=== PATIENT | male | born 1990 | race Two or more races ===

== ENCOUNTER 2016-06-27 16:03 | Emergency (ER) | payer SELFPAY ==
[2016-06-27 16:33] VITALS: BP 159/105
--- NOTE | 2016-06-27 17:27 | UC ---
Skin Complaint HPI - HPI Summary HPI Summary: The patient comes in today for: 1. Skin soreness/mass: Onset: 2-3 years ago. In the last couple of weeks, there is more soreness. Palliative/provocative: Pressing on it makes it worse in terms of pain. No pressure makes it better. Quality: Ache Region: Right torso. Severity: 3/10 Time: Comes and goes. Associated symptoms: Previous evaluation: He went to an emergency room in [place] about 2-3 years ago and was told that the mass was a cyst. Fevers: None. Discharge: None. It has grown to twice its size. PCP: None. He has gained about 50 pounds over the last few years. No history of lymphomas or other cancers. * - History of Current Complaint Chief Complaint: UCSkin Time Seen by Provider: 06/27/16 17:06 Stated Complaint: SKIN COMPLAINT Hx Obtained From: Patient, Family/Bottle Assembler - Allergy/Home Medications Allergies/Adverse Reactions: Allergies Allergy/AdvReac Type Severity Reaction Status Date / Time Shellfish Allergy Allergy Hives/Diff. Verified 01/25/16 13:40 Breathing/I tching Review of Systems Constitutional: Negative Skin: Negative Eyes: Negative ENT: Negative Respiratory: Negative Cardiovascular: Negative Gastrointestinal: Negative Genitourinary: Negative All Other Systems Reviewed And Are Negative: Yes PMH/Surg Hx/FS Hx/Imm Hx Previously Healthy: No Endocrine History Of: Denies: Diabetes, Thyroid Disease, Hyperthyroidism, Hypothyroidism, Dyslipidemia Cardiovascular History Of: Reports: Hypertension - He has not had high blood pressure diagnosed before. Denies: Cardiac Disorders, Pacemaker/ICD, Myocardial Infarction, Congestive Heart Failure, Atrial Fibrillation, Deep Vein Thrombosis, Bleeding Disorders Respiratory History Of: Reports: Asthma - He has occasional use of albuteral inhaler. Denies: COPD, Bronchitis, Pneumonia, Pulmonary Embolism GI/ History Of: Denies: Gastroesophageal Reflux, Ulcer, Gastrointestinal Bleed, Gall Bladder Disease, Kidney Stones, Diverticulitis, Renal Disease, Urosepsis Neurological History Of: Denies: TIA, CVA, Dementia, Seizures, Migraine Psychological History Of: Denies: Anxiety, Depression, Bipolar Disorder, Schizophrenia, Post Traumatic Stress Disorder Cancer History Of: Denies: Lung Cancer, Colorectal Cancer, Breast Cancer, Prostate Cancer, Cervical Cancer Other History Of: Negative For: HIV, Hepatitis B, Hepatitis C, Anticoagulant Therapy - Surgical History Surgical History: None - Family History Known Family History: Positive: Cardiac Disease, Hypertension - Social History Occupation: Employed Full-time Alcohol Use: Occasionally Substance Use Type: None Smoking Status (MU): Never Smoked Tobacco Physical Exam Triage Information Reviewed: Yes Completion Of Physical Exam Limited Due To: Altered Mental Status Appearance: Well-Appearing, No Pain Distress, Well-Nourished Vital Signs: Initial Vital Signs Temp 99.7 F 06/27/16 16:26 Pulse 93 06/27/16 16:26 Resp 16 06/27/16 16:26 BP 159/105 06/27/16 16:26 Pulse Ox 99 06/27/16 16:26 Repeat blood pressure: Large cuff, sitting position, left arm: 144/84. Vital Signs Reviewed: Yes Eyes: Positive: Conjunctiva Clear. Negative: Discharge ENT: Positive: Hearing grossly normal. Negative: Pharyngeal erythema, Nasal congestion, Nasal drainage, TM bulging, TM dull, TM red, Tonsillar swelling, Tonsillar exudate Dental: Negative: Gross Decay/Caries @, Dental Fracture @ Neck: Positive: Supple, Nontender, No Lymphadenopathy. Negative: Nuchal Rigidity Respiratory: Positive: Lungs clear, No respiratory distress, No accessory muscle use. Negative: Crackles, Wheezing Cardiovascular: Positive: RRR, No Murmur Abdomen Description: Positive: Nontender, No Organomegaly, Soft. Negative: Distended, Guarding Musculoskeletal: Positive: Strength Intact, ROM Intact Neurological: Positive: Alert, Muscle Tone Normal Psychological: Positive: Normal Response To Family, Age Appropriate Behavior, Consolable Skin: Positive: Other - 1-2 cm well-rounded, slightly mobile subcutaneous mass of the right side (chest). Minimally tender.. Negative: rashes, breakdown Course/Dx - Course Course Of Treatment: Patient was told that I suspect that he had a lipoma which has gotten bigger due to his increase in weight. However, with any subcutanous mass getting bigger, I recommended that he see a general surgeon for excision to make sure that it is not a lymphoma. - Diagnoses Provider Diagnoses: Enlarging skin mass (lipoma vs lymphoma), right torso. Discharge - Discharge Plan Condition: Stable Disposition: HOME Patient Education Materials: Lipoma (GEN) Referrals: [facility] [place] [facility]ERR[facility] [Outside] No Primary Care Phys,NOPCP [Primary Care Provider] - As Soon As Possible ( Please see your primary care provider as soon as you can to establish care. Since you don't have one at this time, please contact the physician referral office to help you get one.) Stanford Morataya MD [Medical Doctor] - As Soon As Possible (Contact Dr. Morataya's office as soon as you can for a follow-up evaluation and treatment.) Additional Instructions: Skin mass (lipoma vs lyphmoma)
== END 2016-06-27 17:50 | disposition home or self-care (01) ==
LOC: UCEAST 16:03
DX: R22.2 Localized swelling, mass and lump, trunk (principal)
CPT/HCPCS: 99211; G0463

== ENCOUNTER 2017-01-02 16:22 | Observation (INO) | payer MEDICAID ==
[2017-01-02] MEDS ORDERED: NS 0.9% 1000 ML* 1,000 ML IV ONE ×2 (17:34→18:48)
[2017-01-02 18:25] LABS: Hematocrit 48 % (42-52); Hemoglobin 16.7 g/dl (14.0-18.0); Mean Corpuscular HGB Conc 35 g/dl (31-36); Mean Corpuscular Hemoglobin 32 pg (27-31); Mean Corpuscular Volume 91 fL (80-94); Mean Platelet Volume 10 um3 (7.4-10.4); Red Blood Count 5.29 10^6/ul (4.0-5.4); Red Cell Distribution Width 13 % (10.5-15); White Blood Count 8.8 10^3/ul (3.5-10.8)
[2017-01-02 18:27] LABS: Urine Bilirubin Negative (Negative); Urine Glucose 3+(>=500 mg/dL) (Negative); Urine Nitrite Negative (Negative)
[2017-01-02 18:40] LABS: ALT 103 U/L (7-52); Albumin 4.9 g/dL (3.2-5.2); Alkaline Phosphatase 93 U/L (34-104); BUN/Creatinine Ratio 8.1 (8-20); Blood Urea Nitrogen 11 mg/dL (6-24); Calcium 9.6 mg/dL (8.6-10.3); Chloride 94 mmol/L (101-111); EGFR African American 80.8 (>60); EGFR Non-African American 62.9 (>60); Globulin 3.4 g/dL (2-4); Glucose 402 mg/dL (70-100); Sodium 126 mmol/L (133-145); Total Protein 8.3 g/dL (6.4-8.9)
[2017-01-02 18:43] LABS: Anion Gap 19 mmol/L (2-11); CO2 Carbon Dioxide 13 mmol/L (22-32)
[2017-01-02] MEDS ORDERED: Insulin REGULAR(*) 1 UNITS UNIT IV PUSH ONE (18:47)
[2017-01-02 19:04] LABS: TSH (Thyroid Stimulating Horm) 2.46 mcIU/mL (0.34-5.60)
[2017-01-02] MEDS ORDERED: NS 0.9% 1000 ML* 2,000 ML IV ONE (19:22)
--- NOTE | 2017-01-02 19:32 | ED ---
Monica Wood Salem, scribed for Ten Arroyo MD on 01/02/17 at 1914 . HPI Diabetic - HPI Summary HPI Summary: Patient is a 26 y/o M who presents to the ED with frequency in urination for the past 3-4 days. He states that he was had to urinate 15-20 a day since onset of symptoms. He reports polydipsia, mild nausea, and concern of dehydration. His significant other also reports concern that he may be developing DM secondary to her online research. Denies PMHx of DM. - History Of Current Complaint Chief Complaint: EDGeneral Time Seen by Provider: 01/02/17 17:31 Hx Obtained From: Patient, Family/Wig Sales Consultant Onset/Duration: Gradual Onset, Lasting Days, Still Present Timing: Intermittent Episode Lasting Severity Initially: Moderate Severity Currently: Moderate Character: Alert Aggravating: Nothing Alleviating: Nothing Associated Signs & Symptoms: Nausea, Polydipsia - Allergies/Home Medications Allergies/Adverse Reactions: Allergies Allergy/AdvReac Type Severity Reaction Status Date / Time Shellfish Allergy Allergy Hives/Diff. Verified 01/25/16 13:40 Breathing/I tching PMH/Surg Hx/FS Hx/Imm Hx Endocrine/Hematology History: Denies: Hx Anticoagulant Therapy, Hx Diabetes, Hx Thyroid Disease Cardiovascular History: Reports: Hx Hypertension - He has not had high blood pressure diagnosed before. Denies: Hx Congestive Heart Failure, Hx Deep Vein Thrombosis, Hx Myocardial Infarction, Hx Pacemaker/ICD Respiratory History: Reports: Hx Asthma - He has occasional use of albuteral inhaler. Denies: Hx Chronic Obstructive Pulmonary Disease (COPD), Hx Lung Cancer, Hx Pneumonia, Hx Pulmonary Embolism GI History: Denies: Hx Gall Bladder Disease, Hx Gastrointestinal Bleed, Hx Ulcer, Hx Urosepsis History: Denies: Hx Kidney Stones, Hx Renal Disease Neurological History: Denies: Hx Dementia, Hx Migraine, Hx Seizures, Hx Transient Ischemic Attacks (TIA) Psychiatric History: Denies: Hx Anxiety, Hx Depression, Hx Schizophrenia, Hx Bipolar Disorder Infectious Disease History: No Infectious Disease History: Denies: Traveled Outside the [place] in Last 30 Days - Family History Known Family History: Positive: Cardiac Disease, Hypertension - Social History Alcohol Use: Occasionally Hx Substance Use: No Substance Use Type: Reports: None Hx Tobacco Use: No Smoking Status (MU): Never Smoked Tobacco Review of Systems Positive: Other - Polydipsia. . Negative: Fever Positive: Nausea - Mild. Positive: frequency Positive: Other - Lower back pain/pinching feeling. All Other Systems Reviewed And Are Negative: Yes Physical Exam Triage Information Reviewed: Yes Vital Signs On Initial Exam: Initial Vitals Temp Pulse Resp BP Pulse Ox 97.2 F 117 20 160/99 95 01/02/17 16:32 01/02/17 16:32 01/02/17 16:32 01/02/17 16:32 01/02/17 16:32 Vital Signs Reviewed: Yes Appearance: Positive: Well-Appearing, No Pain Distress Skin: Positive: Warm Head/Face: Positive: Normal Head/Face Inspection Eyes: Positive: NILA ENT: Positive: Hearing grossly normal Neck: Positive: Supple, Nontender Respiratory/Lung Sounds: Positive: Breath Sounds Present Cardiovascular: Positive: RRR Abdomen Description: Positive: Nontender, Soft Bowel Sounds: Positive: Present Musculoskeletal: Positive: Strength/ROM Intact Neurological: Positive: Sensory/Motor Intact, Alert, Oriented to Person Place, Time, Normal Gait Psychiatric: Positive: Affect/Mood Appropriate - [place] Coma Scale Coma Scale Total: 15 Diagnostics - Vital Signs Vital Signs Temp Pulse Resp BP Pulse Ox 01/02/17 16:32 97.2 F 117 20 160/99 95 - Laboratory Lab Results: Lab Results 01/02/17 01/02/17 01/02/17 Range/Units 18:05 18:05 18:05 WBC 8.8 (3.5-10.8) 10^3/ul RBC 5.29 (4.0-5.4) 10^6/ul Hgb 16.7 (14.0-18.0) g/dl Hct 48 (42-52) % MCV 91 (80-94) fL MCH 32 H (27-31) pg MCHC 35 (31-36) g/dl RDW 13 (10.5-15) % Plt Count 220 (150-450) 10^3/ul MPV 10 (7.4-10.4) um3 Neut % (Auto) 63.2 (38-83) % Lymph % (Auto) 26.1 (25-47) % [place] % (Auto) 8.6 (1-9) % Eos % (Auto) 1.5 (0-6) % Baso % (Auto) 0.6 (0-2) % Absolute Neuts (auto) 5.6 (1.5-7.7) 10^3/ul Absolute Lymphs (auto) 2.3 (1.0-4.8) 10^3/ul Absolute Monos (auto) 0.8 (0-0.8) 10^3/ul Absolute Eos (auto) 0.1 (0-0.6) 10^3/ul Absolute Basos (auto) 0.1 (0-0.2) 10^3/ul Absolute Nucleated RBC 0.01 10^3/ul Nucleated RBC % 0.2 Sodium 126 L (133-145) mmol/L Potassium TNP Chloride 94 L (101-111) mmol/L Carbon Dioxide 13 L* (22-32) mmol/L Anion Gap 19 H (2-11) mmol/L BUN 11 (6-24) mg/dL Creatinine 1.36 H (0.67-1.17) mg/dL Est GFR ( Amer) 80.8 (>60) Est GFR (Non-Af Amer) 62.9 (>60) BUN/Creatinine Ratio 8.1 (8-20) Glucose 402 H (70-100) mg/dL Lactic Acid (0.5-2.0) mmol/L Calcium 9.6 (8.6-10.3) mg/dL Magnesium TNP Total Bilirubin 0.80 (0.2-1.0) mg/dL AST TNP ALT 103 H (7-52) U/L Alkaline Phosphatase 93 (34-104) U/L Total Protein 8.3 (6.4-8.9) g/dL Albumin 4.9 (3.2-5.2) g/dL Globulin 3.4 (2-4) g/dL Albumin/Globulin Ratio 1.4 (1-3) TSH 2.46 (0.34-5.60) mcIU/mL Urine Color Straw Urine Appearance Clear Urine pH 5.0 (5-9) Ur Specific [place] 1.030 (1.010-1.030) Urine Protein Negative (Negative) Urine Ketones 2+ H (Negative) Urine Blood Negative (Negative) Urine Nitrate Negative (Negative) Urine Bilirubin Negative (Negative) Urine Urobilinogen Negative (Negative) Ur Leukocyte Esterase Negative (Negative) Urine Glucose 3+(>=500 mg/dl) H (Negative) 07/12/17 Range/Units 18:05 WBC (3.5-10.8) 10^3/ul RBC (4.0-5.4) 10^6/ul Hgb (14.0-18.0) g/dl Hct (42-52) % MCV (80-94) fL MCH (27-31) pg MCHC (31-36) g/dl RDW (10.5-15) % Plt Count (150-450) 10^3/ul MPV (7.4-10.4) um3 Neut % (Auto) (38-83) % Lymph % (Auto) (25-47) % [place] % (Auto) (1-9) % Eos % (Auto) (0-6) % Baso % (Auto) (0-2) % Absolute Neuts (auto) (1.5-7.7) 10^3/ul Absolute Lymphs (auto) (1.0-4.8) 10^3/ul Absolute Monos (auto) (0-0.8) 10^3/ul Absolute Eos (auto) (0-0.6) 10^3/ul Absolute Basos (auto) (0-0.2) 10^3/ul Absolute Nucleated RBC 10^3/ul Nucleated RBC % Sodium (133-145) mmol/L Potassium Chloride (101-111) mmol/L Carbon Dioxide (22-32) mmol/L Anion Gap (2-11) mmol/L BUN (6-24) mg/dL Creatinine (0.67-1.17) mg/dL Est GFR ( Amer) (>60) Est GFR (Non-Af Amer) (>60) BUN/Creatinine Ratio (8-20) Glucose (70-100) mg/dL Lactic Acid 0.9 (0.5-2.0) mmol/L Calcium (8.6-10.3) mg/dL Magnesium Total Bilirubin (0.2-1.0) mg/dL AST ALT (7-52) U/L Alkaline Phosphatase (34-104) U/L Total Protein (6.4-8.9) g/dL Albumin (3.2-5.2) g/dL Globulin (2-4) g/dL Albumin/Globulin Ratio (1-3) TSH (0.34-5.60) mcIU/mL Urine Color Urine Appearance Urine pH (5-9) Ur Specific [place] (1.010-1.030) Urine Protein (Negative) Urine Ketones (Negative) Urine Blood (Negative) Urine Nitrate (Negative) Urine Bilirubin (Negative) Urine Urobilinogen (Negative) Ur Leukocyte Esterase (Negative) Urine Glucose (Negative) Result Diagrams: 01/02/17 18:05 01/02/17 18:50 Lab Statement: Any lab studies that have been ordered have been reviewed, and results considered in the medical decision making process. Re-Evaluation - Re-Evaluation First Eval Change: Improved - improving, results d/w pt Diabetic Course/Dx - Course Course Of Treatment: 26 presents with frequency in urination (15-20 a day) for the past 3-4 days. He reports polydipsia, mild nausea, and concern of dehydration. Denies PMHx of DM. He received IV fluids and Insulin in the ED course. - Diagnoses Provider Diagnoses: DKA (diabetic ketoacidoses) - Physician Notifications Instructed by Provider To: Admit As Inpatient - Critical Care Time Critical Care Time: 30-74 min Discharge - Discharge Plan Condition: Fair Disposition: ADMITTED TO [facility] The documentation as recorded by the Monica mays Salem accurately reflects the service I personally performed and the decisions made by , Ten Arroyo MD.
[2017-01-02] MEDS ORDERED: Temazepam CAP* 15 MG PO PRN (19:55)
[2017-01-02] MEDS ORDERED: Acetaminophen TAB* 325 MG PO PRN (19:55)
[2017-01-02] MEDS ORDERED: Docusate CAP* 100 MG PO PRN (19:55)
[2017-01-02] MEDS ORDERED: Magnesium Hydroxide LIQ* 30 ML UDC PO PRN (19:55)
[2017-01-02] MEDS ORDERED: Albuterol HFA INHALER* 8 gm MDI INH PRN (20:21)
--- NOTE | 2017-01-02 21:47 | RAD ---
INDICATION: Diabetic ketoacidosis COMPARISON: None. TECHNIQUE: Single AP portable view of the chest was obtained. FINDINGS: Image quality is compromised due to the relative inferiority of a portable chest x-ray. The heart and mediastinum exhibit normal size and contour. The lungs are grossly clear. There is no evidence of a large pleural effusion. Visualized bones are normal for the patient's age. IMPRESSION: No radiographic evidence for acute cardiopulmonary abnormality on this portable chest x-ray.
[2017-01-02 21:54] LABS: BUN/Creatinine Ratio 10.1 (8-20); Calcium 8.3 mg/dL (8.6-10.3); EGFR African American 116.6 (>60); EGFR Non-African American 90.7 (>60)
[2017-01-02 21:56] LABS: Potassium 3.8 mmol/L (3.5-5.0)
[2017-01-02] MEDS ORDERED: NS 0.9% w/ 20 Meq KCL 1000 ML* 1,000 ML IV SCH (22:00)
[2017-01-02] MEDS: D5W NS 0.9% 20Meq KCL 1000 ML* 1,000 ML IV SCH (22:23)
--- NOTE | 2017-01-03 00:23 | HP ---
HISTORY AND PHYSICAL: DATE OF ADMISSION: 01/02/17 PRIMARY CARE PHYSICIAN: None. CHIEF COMPLAINT: Blurry vision, weakness, increased frequency of urination, and thirst. HISTORY OF PRESENT ILLNESS: Mr. Del Toro is a 26-year-old male with a history of asthma who uses rescue inhaler, albuterol inhaler on a p.r.n. basis and who presents to the hospital complaining of increased thirst and increased frequency with urination. The patient stated that he noted approximately 5 days ago, his vision became blurry. At the same time he also felt his mouth was very dry and he needed to drink all the time to relieve the thirst. With that, he stated that he would be urinating almost "constantly." Himself and his female partner used the excessive thirst and urination in Google search and it came up with a possibility of diagnosis of diabetes. He came in for evaluation, he was noted to be in mild DKA with a sugar level of over 400. He is going to be placed on overnight observation in the intensive care unit with a diagnosis of DKA. PAST MEDICAL HISTORY: Mild asthma controlled with p.r.n. albuterol. MEDICATIONS: Albuterol inhaler 2 puffs on a p.r.n. basis. ALLERGIES: SHELLFISH caused "throat closing." FAMILY HISTORY: Positive for mother with asthma and hypertension. Father with hypertension, asthma, and liver cancer. Both of the parents are alive. He has 3 siblings who are alive and well. SOCIAL HISTORY: The patient denies tobacco or drug use. He drinks alcohol occasionally. 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 He lives with his female partner who has the same last name, Ruchi Del Toro, who also would be his surrogate. They both have 2 children and they are expecting a third one. REVIEW OF SYSTEMS: Please see history of present illness. All the remaining 14 systems were reviewed with the patient and were otherwise negative. PHYSICAL EXAMINATION GENERAL APPEARANCE: A very pleasant 26-year-old male with a BMI of 38. His weight is 302 pounds. The patient is in no acute distress. Alert, awake, and oriented x3. VITAL SIGNS: Blood pressure of 148/89, heart rate of 92 and regular, respiratory rate 16, oxygen saturation 97% on room air, and temperature 97.2. HEENT: Head atraumatic and normocephalic. Eyes: Pupils are equal, round, and reactive to light and accommodation. Oropharynx clear. Mucosa moist. NECK: Supple. No JVD, no bruits bilaterally. RESPIRATORY: Clear to auscultation bilaterally. CARDIOVASCULAR: Regular rate and rhythm. No murmur. ABDOMEN: Obese, soft, and nontender. Bowel sounds present in all 4 quadrants. No hepatomegaly palpated. EXTREMITIES: There is no edema. Pulses are +2 bilaterally. No clubbing or cyanosis. NEUROLOGIC: Speech clear. Cranial nerves II through XII grossly intact. Motor strength is 5/5 bilaterally. SKIN: There are no ecchymotic areas or rashes noted. PSYCHIATRIC: Oriented x3 with no evidence of anxiety or depression. Pleasant and cooperative with evaluation. LABORATORY DATA AND STUDIES: Include: White blood cell count of 8.8, hemoglobin of 16.7, hematocrit of 48, and platelets of 220,000. Sodium of 126, potassium 4.6, chloride 94, carbon dioxide 13, anion gap of 19, BUN 11, and creatinine 1.36. Liver function tests showed ALT of 103, AST of 70, bilirubin of 0.8. Magnesium was 2. TSH was 2.4. Glucose initially of 402. Urinalysis shows +2 ketones and +3 glucose. EKG and portable chest x-ray is pending at the time of dictation. ASSESSMENT AND PLAN: 1. In regards to the patient's mild diabetic ketoacidosis, the patient is going to be placed on intravenous hydration and receive 2 L of intravenous fluids over the next 2 hours for a bolus. He already received 2 L in the ER. He is going to be placed on insulin drip. He already received regular insulin bolus in the emergency department. We will continue as per DKA protocol with glucose checks on an hourly basis. His next basic metabolic panel is to be drawn in an hour. I briefly discussed with the patient the need of insulin use and how to use a glucometer. Diabetic education counseling is requested for tomorrow as well as diabetic nutrition. I expect that the patient may be able to go home tomorrow after the education is completed. I also educated him about the need of diet and exercise to lose weight. At this point, it is possible that the patient has diabetes type 1, but it is also possible that he has an atypical presentation of diabetes type 2. Anti-BLU antibodies were sent out as well as C-peptide levels will be obtained. 2. In regards to the patient's acute renal failure, it is most likely due to dehydration in this patient with diabetic ketoacidosis. intravenous hydration as above and creatinine will be checked in the morning. 3. For DVT prophylaxis, the patient is at low risk and ambulation is going to be encouraged. 4. Code status is full. His surrogate is his female partner, Ruchi. TIME SPENT: Approximately 62 minutes were spent on discharge of this patient, more than half that time was spent [id number] with the patient during the interview, physical exam, and counseling. [id number]/[facility] #: [id number] AROLDO
[2017-01-03 02:21] LABS: BUN/Creatinine Ratio 8.8 (8-20); Calcium 8.1 mg/dL (8.6-10.3); EGFR African American 149.1 (>60)
[2017-01-03 02:23] LABS: Potassium 3.7 mmol/L (3.5-5.0)
[2017-01-03 02:57] LABS: PCO2 Arterial 36 mmHg (35-45)
[2017-01-03] MEDS: D5W NS 0.9% 20Meq KCL 1000 ML* 1,000 ML IV SCH (03:54)
[2017-01-03 06:20] LABS: Hematocrit 42 % (42-52); Hemoglobin 14.3 g/dl (14.0-18.0); Mean Corpuscular HGB Conc 34 g/dl (31-36); Mean Corpuscular Hemoglobin 31 pg (27-31); Mean Corpuscular Volume 91 fL (80-94); Mean Platelet Volume 9 um3 (7.4-10.4); Red Blood Count 4.57 10^6/ul (4.0-5.4); Red Cell Distribution Width 13 % (10.5-15); White Blood Count 5.8 10^3/ul (3.5-10.8)
[2017-01-03 06:36] LABS: ALT 82 U/L (7-52); Albumin 3.7 g/dL (3.2-5.2); Alkaline Phosphatase 74 U/L (34-104); BUN/Creatinine Ratio 7.9 (8-20); Blood Urea Nitrogen 6 mg/dL (6-24); CO2 Carbon Dioxide 16 mmol/L (22-32); Calcium 8.1 mg/dL (8.6-10.3); Chloride 105 mmol/L (101-111); EGFR African American 158.2 (>60); Globulin 2.6 g/dL (2-4); Glucose 184 mg/dL (70-100); Sodium 131 mmol/L (133-145); Total Protein 6.3 g/dL (6.4-8.9)
[2017-01-03 06:39] LABS: Anion Gap 10 mmol/L (2-11)
[2017-01-03] MEDS ORDERED: Insulin GLARGINE(*) 1 UNITS UNIT ONE (09:33)
[2017-01-03] MEDS ORDERED: Insulin GLARGINE(*) 1 UNITS UNIT SUBCUT SCH (10:00)
[2017-01-03] MEDS: Insulin LISPRO* 1 UNITS UNIT SUBCUT SCH ×2 (12:43→17:41)
--- NOTE | 2017-01-03 16:09 | CONSULT ---
Subjective Reason for Visit: DKA Admission Date: 01/02/17 Glucose Level On Admission: 402 History Of Present Illness: Mr. Del Toro is a 26 year old male who began experiencing extreme thirst, polyuria , and blurred vision on 12/31/16. He and his typed the symptoms into google and suspected diabetes. They went to the ER, where he was admitted to the ICU in [facility]. He denies any history of recent infection, and had been feeling good up until 2 days ago when he developed symptoms. He does not have a PCP and states that he has not seen a doctor for over 1 year. He reports a family history of type I diabetes in his niece as well as in an aunt. Patient History Surgical History: None Lives With: Family Marital Status: Preferred/Primary Language: German Employed/Unemployed: Employed Hx Tobacco Use: No Review Of Systems - Review of Systems Constant: No Weight Loss, No Fatigue Eyes: - - reports burred vision Abdominal: No Nausea, No Diarrhea, No Vomitting, No Constipation Endocrine: - - reports polyuria and polydipsia Objective Allergies Allergy/AdvReac Type Severity Reaction Status Date / Time Shellfish Allergy Allergy Hives/Diff. Verified 01/25/16 13:40 Breathing/I tching Home Medications Medication Instructions Recorded Confirmed Type Albuterol HFA INHALER* [Ventolin 2 puff INH Q4H PRN #0 ea 01/03/17 Rx HFA Inhaler*] Glucose Blood [Glucose Meter Test 1 stiven ACHS #100 stiven 01/03/17 Rx Strips] Insulin Glargine [Lantus Solostar 30 units SUBCUT DAILY #1 box 01/03/17 Rx 5x3 ML PENS] Insulin Lispro [Humalog Kwikpen] 10 unit SC AC #1 inj 01/03/17 Rx Insulin Pen Needle [Pen [place] 1 mis SUBCUT AC #100 mis 01/03/17 Rx [id number] (1/4" 31G X 6 mm] Lancets [Lancets Micro Thin 33G] 1 mis SUBCUT ACHS #100 mis 01/03/17 Rx Hospital Medications: Current Medications Acetaminophen (Tylenol Tab*) 650 mg PO Q4H PRN PRN Reason: FEVER/PAIN Albuterol (Ventolin Hfa Inhaler*) 2 puff INH Q4H PRN PRN Reason: SOB/WHEEZING Docusate Sodium (Colace Cap*) 100 mg PO BID PRN PRN Reason: CONSTIPATION Insulin Glargine (Lantus(*)) 30 units SUBCUT Q24H [facility] Last Admin: 01/03/17 09:34 Dose: 30 units Insulin Human Lispro (Humalog*) 0 - 18 units SUBCUT [facility] PRN Reason: Protocol Last Admin: 01/03/17 12:43 Dose: 3 unit Magnesium Hydroxide (Milk Of Magnesia Liq*) 30 ml PO Q4H PRN PRN Reason: CONSTIPATION Temazepam (Restoril Cap*) 15 mg PO BEDTIME PRN PRN Reason: INSOMNIA Lab Data: ABG pH 7.25 (7.35-7.45) L 01/03/17 02:52 ABG HCO3 16.6 mmol/L (19-31) L 01/03/17 02:52 Sodium 131 mmol/L (133-145) L 01/03/17 06:05 Potassium 3.8 mmol/L (3.5-5.0) 01/03/17 07:05 BUN 6 mg/dL (6-24) 01/03/17 06:05 Creatinine 0.76 mg/dL (0.67-1.17) 01/03/17 06:05 Hemoglobin A1c 10.5 % (Less than 6.0) H 01/03/17 02:00 Calcium 8.1 mg/dL (8.6-10.3) L 01/03/17 06:05 Magnesium 2.0 mg/dL (1.9-2.7) 01/02/17 18:50 AST 83 U/L (13-39) H 01/03/17 07:05 ALT 82 U/L (7-52) H 01/03/17 06:05 Glucose Results: Glucose Results Blood Glucose Monitoring POC Start: 01/02/17 20: 00 Freq: ACHNallely Status: Active Document 01/02/17 20:15 [id number] (Rec: 01/03/17 01:07 [id number]) Blood Glucose Monitoring POC Glucose Obtained Yes Source of Specimen Capillary Glucose Result Being Addressed/Treated ( 264 mg/dL) Blood Glucose Method POC Glucose (bedside) Document 01/02/17 21:20 [id number] (Rec: 01/03/17 01:08 [id number]) Blood Glucose Monitoring POC Glucose Obtained Yes Source of Specimen Venous Glucose Result Being Addressed/Treated ( 215 mg/dL) Blood Glucose Method POC Glucose (bedside) Document 01/02/17 22:30 [id number] (Rec: 01/03/17 01:08 [id number]) Blood Glucose Monitoring POC Glucose Obtained Yes Source of Specimen Venous Glucose Result Being Addressed/Treated ( 169 mg/dL) Blood Glucose Method POC Glucose (bedside) Document 01/02/17 23:30 [id number] (Rec: 01/03/17 01:08 [id number]-C15) Blood Glucose Monitoring POC Glucose Obtained Yes Source of Specimen Venous Glucose Result Being Addressed/Treated ( 176 mg/dL) Blood Glucose Method POC Glucose (bedside) Document 01/03/17 00:45 [id number] (Rec: 01/03/17 01:09 [id number] ICU-C15) Blood Glucose Monitoring POC Glucose Obtained Yes Source of Specimen Venous Glucose Result Being Addressed/Treated ( 170 mg/dL) Blood Glucose Method POC Glucose (bedside) Document 01/03/17 02:00 [id number] (Rec: 01/03/17 02:03 [id number] [id number]) Blood Glucose Monitoring POC Glucose Obtained Yes Source of Specimen Capillary Glucose Result Being Addressed/Treated ( 159 mg/dL) Blood Glucose Method POC Glucose (bedside) Document 01/03/17 03:00 [id number] (Rec: 01/03/17 03:10 [id number] ICU-C15) Blood Glucose Monitoring POC Glucose Obtained Yes Source of Specimen Capillary Glucose Result Being Addressed/Treated ( 164 mg/dL) Blood Glucose Method POC Glucose (bedside) Document 01/03/17 04:00 [id number] (Rec: 01/03/17 06:20 [id number] ICU-C15) Blood Glucose Monitoring POC Glucose Obtained Yes Source of Specimen Venous Glucose Result Being Addressed/Treated ( 164 mg/dL) Blood Glucose Method POC Glucose (bedside) Document 01/03/17 05:00 [id number] (Rec: 01/03/17 06:20 [id number]) Blood Glucose Monitoring POC Glucose Obtained Yes Source of Specimen Venous Glucose Result Being Addressed/Treated ( 175 mg/dL) Blood Glucose Method POC Glucose (bedside) Document 01/03/17 06:00 [id number] (Rec: 01/03/17 06:37 [id number] ICU-C15) Blood Glucose Monitoring POC Glucose Obtained Yes Source of Specimen Venous Glucose Result Being Addressed/Treated ( 175 mg/dL) Blood Glucose Method POC Glucose (bedside) Document 01/03/17 07:00 [id number] (Rec: 01/03/17 07:54 [id number] ICU-C15) Blood Glucose Monitoring POC Glucose Obtained Yes Source of Specimen Capillary Glucose Result Being Addressed/Treated ( 167 mg/dL) Document 01/03/17 08:00 [id number] (Rec: 01/03/17 08:18 [id number] ICU-C15) Blood Glucose Monitoring POC Glucose Obtained Yes Source of Specimen Capillary Glucose Result Being Addressed/Treated ( 169 mg/dL) Blood Glucose Method POC Glucose (bedside) Document 01/03/17 09:00 [id number] (Rec: 01/03/17 09:21 [id number]-C15) Blood Glucose Monitoring POC Glucose Obtained Yes Source of Specimen Capillary Glucose Result Being Addressed/Treated ( 164 mg/dL) Blood Glucose Method POC Glucose (bedside) Document 01/03/17 12:42 [id number] (Rec: 01/03/17 12:42 [id number]) Blood Glucose Monitoring POC Glucose Obtained Yes Source of Specimen Capillary Glucose Result Being Addressed/Treated ( 195 mg/dL) Blood Glucose Method POC Glucose (bedside) Vital Signs: Vital Signs 01/03/17 01/03/17 01/03/17 08:15 08:30 08:32 Temperature Pulse Rate 79 75 72 Respiratory 16 14 14 Rate Blood Pressure (mmHg) O2 Sat by Pulse 97 96 97 Oximetry 01/03/17 01/03/17 01/03/17 08:45 09:00 09:15 Temperature Pulse Rate 78 105 89 Respiratory 15 16 18 Rate Blood Pressure 152/86 (mmHg) O2 Sat by Pulse 96 99 97 Oximetry 01/03/17 01/03/17 01/03/17 09:30 09:45 10:00 Temperature Pulse Rate 81 88 97 Respiratory 18 18 21 Rate Blood Pressure 155/98 (mmHg) O2 Sat by Pulse 97 97 97 Oximetry 01/03/17 01/03/17 01/03/17 10:15 10:30 10:45 Temperature Pulse Rate 84 90 81 Respiratory 19 18 16 Rate Blood Pressure (mmHg) O2 Sat by Pulse 97 97 97 Oximetry 01/03/17 01/03/17 01/03/17 11:00 11:15 11:30 Temperature Pulse Rate 77 81 86 Respiratory 15 16 22 Rate Blood Pressure 150/95 (mmHg) O2 Sat by Pulse 96 97 97 Oximetry 01/03/17 01/03/17 01/03/17 11:44 11:45 12:00 Temperature 36.7 C Pulse Rate 82 85 Respiratory 17 19 Rate Blood Pressure 155/97 (mmHg) O2 Sat by Pulse 97 97 Oximetry 01/03/17 01/03/17 01/03/17 12:15 12:30 12:45 Temperature Pulse Rate 77 70 85 Respiratory 17 14 15 Rate Blood Pressure (mmHg) O2 Sat by Pulse 97 96 97 Oximetry 01/03/17 01/03/17 01/03/17 13:00 13:15 13:30 Temperature Pulse Rate 84 94 93 Respiratory 17 15 20 Rate Blood Pressure 152/108 (mmHg) O2 Sat by Pulse 98 97 96 Oximetry 01/03/17 01/03/17 01/03/17 13:45 14:00 14:15 Temperature Pulse Rate 86 82 85 Respiratory 16 16 17 Rate Blood Pressure 156/80 (mmHg) O2 Sat by Pulse 96 95 95 Oximetry 01/03/17 01/03/17 01/03/17 14:30 14:45 15:00 Temperature Pulse Rate 88 89 94 Respiratory 18 13 16 Rate Blood Pressure 132/119 (mmHg) O2 Sat by Pulse 96 97 97 Oximetry 01/03/17 15:42 Temperature 36.7 C Pulse Rate Respiratory Rate Blood Pressure (mmHg) O2 Sat by Pulse Oximetry Physical Exam General Appearance: Positive: Alert, Oriented x3, Well Developed, Comfortable, No Distress, Lying In Bed Dentition: Positive: Dentition in Good Repair Cardiovascular: Positive: RRR Abdomin: Positive: Soft, Obese Plan Of Care Diagnosis: Mr. Del Toro is a 26 year old male with newly diagnosed diabetes. C peptide and insulin antibodies have been ordered but results are not back at this time. Pt was educated on use of the glucometer, insulin pen, self injection, signs/ symptoms of hypoglycemia, and when to seek medical attention. Briefly discussed nutrition but he would benefit from further outpatient diabetes education. Education Prior Diabetic Education: No Education Provided: Daily Self Injection, Blood Glucose Monitoring, When To Seek Medical Attention Goals Goals: According to the [place] [employer], the following are your goals for Hemaglobin A1C, Blood Glucose, Cholesterol and Blood Pressure. Hemaglobin A1C * <7.0% for most * <6.5% for "healthy" * <8.0% for "Less Healthy" Blood Glucose * Fasting Blood Glucose: 80-130 mg/dl * 2 Hour Post Prandial Glucose <180 mg/dl
--- NOTE | 2017-01-03 16:48 | DCNOTE ---
Patient seen this morning and again later in the day. Had one elevated BG but overall sugars well controlled on SC insulin. Patient seen by DM educator and will need continued outpatient education regarding diet but feels comfortable administering insulin and monitoring BGs at home. On exam, RRR, s1 and s2 present, no m/g/r, abd soft, obese, NTND, BS+, no LE edema Will discharge home on Humalog 10 units AC + sliding scale and Lantus 30 units daily. Will f/u with [facility] Villarreal and referral made to see Dr. Pinto. Also should follow-up with [facility].
[2017-01-03 17:10] VITALS: BP 129/70
--- NOTE | 2017-01-04 11:11 | DS ---
CC: Maria Luisa Villarreal NP; [facility]; Dr. Bennett Pinto DISCHARGE SUMMARY: DATE OF ADMISSION: 01/02/17 DATE OF DISCHARGE: 01/03/17 PRIMARY CARE PROVIDER: The patient's new PCP is Maria Luisa Villarreal NP PRINCIPAL DISCHARGE DIAGNOSES: 1. New-onset diabetes. 2. Diabetic ketoacidosis. SECONDARY DIAGNOSIS: Asthma. HISTORY OF PRESENT ILLNESS AND HOSPITAL SUMMARY: Mr. Del Toro is a 26-year-old man with a past medical history of asthma, who presented to the hospital with polyuria, polydipsia. He came to the hospital after his girlfriend googled his symptoms and they were concerned about diabetes. He was found to have an elevated blood sugar on admission of 402 as well as carbon dioxide of 13 and anion gap of 19 as well as some SHERIDAN. The patient was started on insulin drip and fluid resuscitated. He was maintained on the drip overnight with improvement in his acidosis and closure of his anion gap. The patient was transitioned to subcutaneous insulin. He was seen by [facility] and had diabetes education. He will be discharged on Lantus and short-acting mealtime insulin. He had a C- peptide and an anti-GAD65 antibody that were sent and are pending at this time. The patient will follow up with new PCP, Maria Luisa Villarreal NP. He will also be referred to Dr. Pinto, devulcanizer tender, and to the [facility] for further followup and education about diabetes. DISCHARGE MEDICATION REGIMEN: 1. Lantus 30 units subcutaneous daily. 2. Lispro 10 units subcutaneous with meals plus additional sliding scale insulin as indicated in discharge instructions. 3. Albuterol 2 puffs inhaled every 4 hours as needed for shortness of breath or wheezing. TIME SPENT: Total time spent on this discharge 45 minutes. This is a summary of the hospitalization, please see the full medical record for further details. [id number]/[facility] #: [id number] [facility]
[2017-01-04 14:12] LABS: C-Peptide ng/ml 1.6 ng/mL (1.1 - 4.4)
== END 2017-01-03 18:20 | disposition home or self-care (01) ==
LOC: ED 16:22 → ICU 19:44
PROVIDERS: ADMIT Internal Medicine; ATTEND Hospitalist
DX: E13.10 Other specified diabetes mellitus with ketoacidosis without coma (principal); N17.9 Acute kidney failure, unspecified
CPT/HCPCS: 36415; 36600; 71010; 80048; 80053; 81003; 82803; 83036; 83605; 83735; 84443; 84681; 85025; 86337; 86341; 87641; 93005; 96365; 96366; 99221; 99291; A9270-GY; G0378

== ENCOUNTER 2017-07-18 15:03 | Emergency (ER) | payer MEDICAID | END 2017-07-18 15:29 | disposition left against medical advice (07) | LOC: ED 15:03 | DX: J11.1 Influenza due to unidentified influenza virus with other respiratory manifestations (principal); Z53.21 Procedure and treatment not carried out due to patient leaving prior to being seen by health care provider ==

== ENCOUNTER 2022-12-13 19:24 | Inpatient (IN) ==
[2022-12-13] MEDS ORDERED: Lorazepam PYXIS KEY PRN ×2 (19:37→20:42)
[2022-12-13] MEDS ORDERED: Lactated Ringers 1000 ml BAG 1,000 ML IV ONE (19:37)
[2022-12-13] MEDS ORDERED: LORazepam 2 mg VIAL 1 ml IV PUSH ONE ×2 (19:37→20:42)
[2022-12-13] MEDS ORDERED: Thiamine 100 MG/ML 2 ml VIAL (200 mg) IM ONE (19:44)
[2022-12-13 19:54] LABS: ABS Lymphocytes 0.4 10^3/uL (1.0-4.8); ABS Monocytes 0.4 10^3/uL (0.0-1.1); ABS Neutrophils 2.8 10^3/uL (1.5-7.6); ABS Nucleated RBC 0.01 10^3/ul; Hematocrit 43.4 % (38-53); Hemoglobin 14.8 g/dL (13.2-16.3); Lymphocyte % 11.9 %; Mean Corpuscular Hemoglobin 33.4 pg (27-33); Mean Platelet Volume 7.6 fL (7.5-11.2); Nucleated Red Blood Cells % 0.2 /100 WBC (0.0-0.4); Platelet Count 115 10^3/uL (150-450); Red Blood Count 4.43 10^6/uL (4.06-5.63); Red Cell Distribution Width 13.4 % (12-17); White Blood Count 3.6 10^3/uL (3.6-10.2)
[2022-12-13 20:04] LABS: INR 1.13 (0.88-1.18)
[2022-12-13 20:09] LABS: ALT 73 U/L (7-52); AST 93 U/L (13-39); Albumin 4.8 g/dL (3.2-5.2); Albumin/Globulin Ratio 1.4 (1-3); Alkaline Phosphatase 70 U/L (35-149); Anion Gap 26 mmol/L (2-16); Blood Urea Nitrogen 13 mg/dL (6-24); CO2 Carbon Dioxide 15 mmol/L (22-32); Calcium 9.5 mg/dL (8.6-10.3); Chloride 97 mmol/L (101-111); Creatine Kinase 213 U/L (10-223); Creatinine, Serum 1.06 mg/dL (0.67-1.17); Globulin 3.5 g/dL (2-4); Glucose 98 mg/dL (70-100); Magnesium 1.6 mg/dL (1.9-2.7); Potassium 3.8 mmol/L (3.5-5.0); Sodium 138 mmol/L (135-145); Total Protein 8.3 g/dL (6.4-8.9)
[2022-12-13] MEDS ORDERED: Magnesium Sulfate 2 gm BAG 2 GM/50 ML BAG IVPB ONE (20:18)
[2022-12-13 20:30] LABS: Acetaminophen < 15 mcg/mL; Alcohol, S < 13 mg/dL (<13); Salicylate < 2.50 mg/dL (<30)
[2022-12-13] MEDS ORDERED: Magnesium Sulf 4 GM/100 ML IV 4,000 MG/100 ML BAG IVPB ONE (21:32)
[2022-12-13 21:53] LABS: Phosphorus 3.2 mg/dL (2.5-5.0)
[2022-12-13] MEDS ORDERED: NORMOSOL-R pH 7.4 1000 mL BAG 1,000 ML IV ONE (23:45)
[2022-12-14] MEDS ORDERED: Metoprolol Tartrate 5 mg VIAL 5 ml VIAL (1 mg/ml) IV ONE (00:23)
[2022-12-14] MEDS ORDERED: NORMOSOL-R pH 7.4 1000 mL BAG 1,000 ML IV SCH (00:45)
[2022-12-14] MEDS: LORazepam 2 mg VIAL 1 ml IV PUSH SCH ×3 (00:52→02:30)
[2022-12-14] MEDS ORDERED: Enoxaparin 100 MG/ML SYR SUBCUT SCH ×3 (01:00→11:00)
[2022-12-14 03:20] LABS: High Sens Troponin Baseline 6 pg/mL (<20)
[2022-12-14 04:25] LABS: ABS Lymphocytes 0.8 10^3/uL (1.0-4.8); ABS Monocytes 0.7 10^3/uL (0.0-1.1); ABS Neutrophils 2.8 10^3/uL (1.5-7.6); Eosinophil % 0.1 %; Hematocrit 41.9 % (38-53); Hemoglobin 14.2 g/dL (13.2-16.3); Lymphocyte % 17.6 %; Mean Corpuscular Hemoglobin 33.2 pg (27-33); Mean Corpuscular Hgb Conc 33.9 g/dL (31-36); Mean Corpuscular Volume 97.8 fL (80-97); Mean Platelet Volume 8.4 fL (7.5-11.2); Nucleated Red Blood Cells % 0.1 /100 WBC (0.0-0.4); Platelet Count 98 10^3/uL (150-450); Red Blood Count 4.28 10^6/uL (4.06-5.63); Red Cell Distribution Width 13.8 % (12-17); White Blood Count 4.3 10^3/uL (3.6-10.2)
[2022-12-14 04:43] LABS: Albumin 3.9 g/dL (3.2-5.2); Albumin/Globulin Ratio 1.3 (1-3); Calcium 8.2 mg/dL (8.6-10.3); Creatinine, Serum 0.72 mg/dL (0.67-1.17); Globulin 2.9 g/dL (2-4); Magnesium 4.1 mg/dL (1.9-2.7); Total Protein 6.8 g/dL (6.4-8.9); eGFR CKD-EPI 123.7 (>60)
[2022-12-14 04:54] LABS: Phosphorus 1.9 mg/dL (2.5-5.0); Potassium 3.9 mmol/L (3.5-5.0)
[2022-12-14 05:51] LABS: TSH Ultra Thyroid Stim Horm 3.41 mcIU/mL (0.34-5.60)
[2022-12-14 07:24] LABS: Albumin/Globulin Ratio 1.4 (1-3); Calcium 8.4 mg/dL (8.6-10.3); Creatinine, Serum 0.8 mg/dL (0.67-1.17); Globulin 2.9 g/dL (2-4); Potassium 3.9 mmol/L (3.5-5.0); Total Bilirubin 1.1 mg/dL (0.2-1.0); Total Protein 6.9 g/dL (6.4-8.9); eGFR CKD-EPI 119.8 (>60)
[2022-12-14] MEDS ORDERED: Lactated Ringers 1000 ml BAG 1,000 ML IV ONE (08:40)
[2022-12-14] MEDS ORDERED: Thiamine 100 MG/ML 2 ml VIAL 500 MG in NS 0.9% 250 ml 250 ML IV SCH (09:00)
[2022-12-14] MEDS ORDERED: Pantoprazole VIAL 40 MG VIAL IV SCH (09:00)
[2022-12-14] MEDS ORDERED: Multivitamins/Minerals TAB PO SCH (09:00)
[2022-12-14] MEDS ORDERED: Enoxaparin 40 MG/0.4 ML SYR SUBCUT SCH (09:00)
[2022-12-14] MEDS ORDERED: Potassium Chloride LIQUID 20 MEQ/15 ML LIQUID PO ONE (10:39)
[2022-12-14 11:00] LABS: Magnesium 2.2 mg/dL (1.9-2.7)
[2022-12-14 13:24] LABS: Urine Benzodiazepine Screen None Detected (None Detect); Urine Cannabinoids Screen Presumptive Positive (None Detect); Urine Opiates Screen None Detected (None Detect)
[2022-12-14 15:11] VITALS: BP 137/85
[2022-12-14] MEDS ORDERED: dilTIAZem 30 MG TAB PO SCH (18:00)
== END 2022-12-14 16:40 | disposition left against medical advice (07) | DRG 770 ==
LOC: ED 19:24 → EDHOLD 21:30 → ICU 23:03
PROVIDERS: ADMIT Internal Medicine; ATTEND Internal Medicine